=== PATIENT | male | born 1940 | race Caucasian/White ===

== ENCOUNTER 2020-01-16 18:25 | Emergency (ER) | payer MEDICARE, BC ==
[2020-01-16 18:33] VITALS: BP 151/81; PULSE 71
--- NOTE | 2020-01-16 18:55 | EDM.PDOC ---
ED HPI GENERAL MEDICAL PROBLEM - General Chief Complaint: Respiratory Problem Stated Complaint: SOB,COVID POSITIVE Time Seen by Provider: 01/16/20 18:45 Source of Information: Reports: Patient History Limitations: Reports: No Limitations - History of Present Illness INITIAL COMMENTS - FREE TEXT/NARRATIVE: 79-year-old male with history of asthma who reports has had nasal congestion and cough for the past week. He was tested for COVID on 01/14/2020 and today he got his tests back and it was positive. He is here with his who is also positive but is not being seen at present. Her symptoms have essentially resolved. He noted a fever today and felt that he should come in to be seen. He does not really have any shortness of breath area and he has had no nausea or vomiting. He has been eating and drinking normally. He denies any pain. He rates his pain as a 0/10. He also reports no loss of smell or taste senses and he also reports that he has a relatively normal appetite at present. He has fairly stable asthma and has not had a rescue inhaler for quite some time but he has not really felt the need for it thus far. There are no other associated signs or symptoms. There are no other modifying factors. Onset: Other (One week ago) Duration: Constant Location: Reports: Other (No pain) Quality: Reports: Other (Not applicable) Improves with: Reports: None Worsens with: Reports: None Context: Reports: Other (As above) Associated Symptoms: Reports: Cough, Fever/Chills Treatments LEARNING SUPPORT ASSISTANT: Reports: Acetaminophen - Related Data Allergies Allergy/AdvReac Type Severity Reaction Status Date / Time PET DANDER Allergy Mild Sneezing Uncoded 01/16/20 18:40 Home Meds: Home Meds Aspirin [Ecotrin EC] 81 mg PO DAILY 05/11/14 [History] Finasteride [Proscar] 5 mg PO DAILY 05/11/14 [History] Tamsulosin HCl 0.4 mg PO DAILY 05/11/14 [History] atorvaSTATin Calcium [Atorvastatin Calcium] 10 mg PO BEDTIME 05/11/14 [History] Ferrous Sulfate 325 mg PO BID 12/31/18 [History] Fluticasone Propion/Salmeterol [Advair 250-50 Diskus] 1 each INH BID 12/31/18 [History] Ibuprofen 800 mg PO ASDIRECTED PRN 12/31/18 [History] Sildenafil Citrate 50 mg PO ASDIRECTED PRN 12/31/18 [History] Albuterol Sulfate [Albuterol Sulfate Hfa] 2 - 4 puff IH Q4HR PRN #1 hfa.aer.ad 01/16/20 [Rx] Azithromycin [Zithromax] 1 dose PO DAILY 5 Days #6 tab 01/16/20 [Rx] predniSONE [Prednisone] 60 mg PO QAM 5 Days #15 tablet 01/16/20 [Rx] Past Medical History HEENT History: Reports: Cataract, Impaired Vision Cardiovascular History: Reports: CAD, High Cholesterol, Stents Other Cardiovascular History: Stent x 1 2018 Respiratory History: Reports: Asthma, Sleep Apnea Gastrointestinal History: Reports: Cholelithiasis, Diverticulosis Genitourinary History: Reports: BPH, Prostate Disorder Musculoskeletal History: Reports: Arthritis, Osteoarthritis Endocrine/Metabolic History: Reports: Obesity/BMI 30+ - Past Surgical History HEENT Surgical History: Reports: Cataract Surgery, Tonsillectomy Cardiovascular Surgical History: Reports: Coronary Artery Bypass, Other (See Below) Other Cardiovascular Surgeries/Procedures: 4 way bypass 20 years ago. GI Surgical History: Reports: Appendectomy, Cholecystectomy, Colonoscopy Male Surgical History: Reports: Vasectomy Musculoskeletal Surgical History: Reports: Hip Replacement, Knee Replacement Other Musculoskeletal Surgeries/Procedures:: BILATERAL KNEE ET RIGHT HIP REPLACED. Social & Family History - Tobacco Use Tobacco Use Status *Q: Former Tobacco User Used Tobacco, but Quit: Yes Month/Year Tobacco Last Used: unable to remember Tobacco Use Comment: states that he just had social cigars during his younger years which was a very long time ago as per patient. - Caffeine Use Caffeine Use: Reports: Coffee, Soda - Recreational Drug Use Recreational Drug Use: No - Living Situation & Occupation Living situation: Reports: ED ROS GENERAL - Review of Systems Review Of Systems: See Below Constitutional: Reports: Fever, Malaise HEENT: Reports: Other (Nasal congestion) Respiratory: Reports: Cough, Sputum Cardiovascular: Reports: No Symptoms GI/Abdominal: Reports: No Symptoms : Reports: No Symptoms Musculoskeletal: Reports: No Symptoms Skin: Reports: No Symptoms Neurological: Reports: No Symptoms Hematologic/Lymphatic: Reports: No Symptoms Immunologic: Reports: No Symptoms ED EXAM, GENERAL - Physical Exam Exam: See Below Exam Limited By: No Limitations General Appearance: Alert, WD/WN, No Apparent Distress Eye Exam: Bilateral Eye: EOMI, Normal Inspection Ears: Normal External Exam, Hearing Grossly Normal Ear Exam: Bilateral Ear: Auricle Normal Nose: No Blood, Nasal Drainage Throat/Mouth: Normal Inspection, Normal Oropharynx, Normal Voice, No Airway Compromise Head: Atraumatic, Normocephalic Neck: Normal Inspection, Supple, Non-Tender, Full Range of Motion Respiratory/Chest: No Respiratory Distress, Lungs Clear, Normal Breath Sounds, No Accessory Muscle Use, Chest Non-Tender Cardiovascular: Normal Peripheral Pulses, Regular Rate, Rhythm, No Murmur Peripheral Pulses: 2+: Radial (L), Radial (R) GI/Abdominal: Normal Bowel Sounds, Soft, Non-Tender, No Mass Back Exam: Normal Inspection, Full Range of Motion Extremities: Normal Inspection, Normal Range of Motion, Non-Tender, No Pedal Edema, Normal Capillary Refill Neurological: Alert, Oriented, CN II-XII Intact, Normal Cognition, No Motor/Sensory Deficits Psychiatric: Normal Affect Skin Exam: Warm, Dry, Intact, Normal Color, No Rash Course - Vital Signs Last Recorded V/S: Last Vital Signs Temp 37.7 C 01/16/20 18:25 Pulse 71 01/16/20 18:25 Resp 19 01/16/20 18:25 BP 151/81 H 01/16/20 18:25 Pulse Ox 98 01/16/20 18:25 - Re-Assessments/Exams Free Text/Narrative Re-Assessment/Exam: 01/16/20 19:05: Patient is awake, alert and appropriate. He has minimal respiratory symptoms and his temp is slightly elevated. He has normal O2 s aturations and is in no respiratory distress. He has had no vomiting or diarrhea and has no real weakness. Discussed this with the family and discussed that treatment of his COVID infection should be at home treatment with self quarantine. He has a home O2 sat monitor that he can monitor his O2 saturations. I will give him a prescription for a rescue inhaler as he does not have an albuterol inhaler at home. In addition I will give him a prescription for a Z- Juan and a five-day course of prednisone if he begins to feel that he is having an exacerbation of his asthma. Precautions and reasons for return to the emergency department were discussed with the patient and with his while the patient was in the emergency department for detailed in the patient's discharge instructions. They feel comfortable with the plan for discharge at this point. Departure - Departure Time of Disposition: 19:20 Disposition: Home, Self-Care 01 Condition: Good Clinical Impression: COVID-19 virus infection URI (upper respiratory infection) Qualifiers: URI type: unspecified URI Qualified Code(s): J06.9 - Acute upper respiratory infection, unspecified Asthma Qualifiers: Asthma severity: mild Asthma persistence: intermittent Asthma complication type: uncomplicated Qualified Code(s): J45.20 - Mild intermittent asthma, uncomplicated - Discharge Information Prescriptions: Albuterol Sulfate [Albuterol Sulfate Hfa] 2 - 4 puff IH Q4HR PRN #1 hfa.aer.ad PRN Reason: Wheezing/cough/short of breath predniSONE [Prednisone] 60 mg PO QAM 5 Days #15 tablet Azithromycin [Zithromax] 1 dose PO DAILY 5 Days #6 tab Instructions: COVID-19 Frequently Asked Questions, Cough, Adult, [id number], Viral Respiratory Infection, [id number], COVID-19: How to Protect Yourself and Others - CDC, Asthma, Adult, [id number] Forms: ED Department Discharge Additional Instructions: Your O2 saturations, vital signs and rest of your exam is reassuring. Your ottoniel atment for COVID should be to drink plenty of fluids, rest, take Tylenol 1000 mg every 6 hours as needed for fever and to monitor your breathing with the O2 sat monitor. I did give you a prescription for an albuterol inhaler that you can use if you develop wheezing which you may. I have also given you a prescription for Zithromax and prednisone that you should not take now but get filled only if you feel that you are having an exacerbation of your asthma. He should continue to self quarantine for at least 10 days and to you are symptom-free with no fever for at least 24 hours. Back to the emergency department for worse breathing with O2 saturations below 90-91%, severe weakness, unrelenting vomiting and inability to keep liquids down, severe diarrhea, chest pain or any other concerning sign or symptom. Otherwise, you should stay at home with the treatment as outlined above. Sepsis Event Note (ED) - Evaluation Sepsis Screening Result: No Definite Risk - Focused Exam Vital Signs: Vital Signs Temp Pulse Resp BP Pulse Ox 01/16/20 18:25 37.7 C 71 19 151/81 H 98
== END 2020-01-16 19:40 | disposition home or self-care (01) ==
LOC: FB.ED 18:25
DX: U07.1 COVID-19 (principal); J06.9 Acute upper respiratory infection, unspecified; J45.20 Mild intermittent asthma, uncomplicated; I25.10 Atherosclerotic heart disease of native coronary artery without angina pectoris; E78.00 Pure hypercholesterolemia, unspecified; M19.90 Unspecified osteoarthritis, unspecified site; E66.9 Obesity, unspecified; Z68.32 Body mass index [BMI] 32.0-32.9, adult; Z95.5 Presence of coronary angioplasty implant and graft; Z87.891 Personal history of nicotine dependence; Z91.048 Other nonmedicinal substance allergy status; Z79.899 Other long term (current) drug therapy; Z79.82 Long term (current) use of aspirin
CPT/HCPCS: 99284